=== PATIENT | male | born 1985 | race Caucasian/White ===

== ENCOUNTER 2017-05-10 16:47 | Emergency (ER) | payer OTHER ==
[~2017-05-10] VITALS: Ht 180.3 cm; Wt 117.9 kg
[~2017-05-10 16:47] MED LIST: CORTISPORIN 1%-10 M1 OT; KEFLEX500 MG PO; MOTRIN800 MG PO; NKHM; TRAMADOL HCL50 MG PO; TRIMOX500 MG PO
[2017-05-10] MEDS ORDERED: CEPHALEXIN500 M1 PO (17:28)
== END 2017-05-10 18:29 | disposition home or self-care (01) ==
LOC: ED 16:47
DX: L02.213 Cutaneous abscess of chest wall (principal); F17.200 Nicotine dependence, unspecified, uncomplicated

== ENCOUNTER 2019-07-17 09:54 | Emergency (ER) | payer OTHER ==
[~2019-07-17] VITALS: Ht 180.3 cm; Wt 142.9 kg
[~2019-07-17 09:54] MED LIST changes: +CEPHALEXIN500 M1 PO
== END 2019-07-17 15:00 | disposition home or self-care (01) ==
LOC: ED 09:54
DX: G43.909 Migraine, unspecified, not intractable, without status migrainosus (principal); F17.200 Nicotine dependence, unspecified, uncomplicated

== ENCOUNTER → 2022-11-12 | Outpatient (CLI) | payer OTHER | END | disposition home or self-care (01) | LOC: RAD 10:37 | PROVIDERS: ATTEND Nurse Practitioner Family | DX: M25.561 Pain in right knee (principal); M54.41 Lumbago with sciatica, right side ==

== ENCOUNTER → 2023-01-29 | Outpatient (CLI) | payer OTHER | END | disposition home or self-care (01) | LOC: ORTHO 00:31 | PROVIDERS: ATTEND Orthopaedic Surgery | DX: M25.561 Pain in right knee (principal) ==

== ENCOUNTER 2024-10-04 13:02 | Emergency (ER) | payer OTHER ==
[~2024-10-04] VITALS: Ht 180.3 cm; Wt 147.4 kg
[~2024-10-04 13:02] MED LIST changes: +CIPROFLOXACIN500 M4 PO; +METRONIDAZOLE500 M1 PO
[2024-10-04 16:19] LABS: BASO # 0.1 10*3/uL (0.0-0.1); BASO % 0.9 % (0.0-1.0); EOS # 0.2 10*3/uL (0.0-0.4); EOS % 2.4 % (1.0-4.0); HEMATOCRIT 46.6 % (42.0-52.0); MEAN CELL VOLUME 89.3 fl (80.0-94.0); MEAN CORPUSCULAR HGB 28.9 pg (27.0-31.0); MEAN CORPUSCULAR HGB CONC 32.4 g/dl (33.0-37.0); MEAN PLATELET VOLUME 9.7 fl (9.6-12.3); MONO # 0.7 10*3/uL (0.1-1.0); MONO % 7.7 % (3.0-9.0); NEUT # 4.8 10*3/uL (2.3-7.9); NEUT % 52.6 % (47.0-73.0); PLATELET COUNT AUTOMATED 316 10*3/uL (130-400); RED BLOOD COUNT 5.22 10*6/uL (4.50-5.90); RED CELL DISTRI WIDTH 11.4 % (0-14.5); WHITE BLOOD COUNT 9.2 10*3/uL (4.8-10.8)
[2024-10-04 16:50] LABS: BUN 9 mg/dl (9-23); CHLORIDE 102 mmol/L (98-107); POTASSIUM 4.3 mmol/L (3.4-5.1)
[2024-10-04] MEDS ORDERED: ANUSOL HC30 GM PO (16:56)
== END 2024-10-04 17:02 | disposition home or self-care (01) ==
LOC: ED 13:02
PROVIDERS: Nurse Practitioner Family
DX: K64.9 Unspecified hemorrhoids (principal); G43.909 Migraine, unspecified, not intractable, without status migrainosus; F17.290 Nicotine dependence, other tobacco product, uncomplicated

== ENCOUNTER 2024-12-11 10:06 | Emergency (ER) | payer OTHER ==
[~2024-12-11] VITALS: Ht 180.3 cm; Wt 142.9 kg
[~2024-12-11 10:06] MED LIST changes: +ANUSOL HC30 GM PO
[2024-12-11] MEDS ORDERED: TAMIFLU 75MG CA75 MG PO (13:24)
== END 2024-12-11 13:47 | disposition home or self-care (01) ==
LOC: ED 10:06
DX: R05.9 Cough, unspecified (principal); R50.9 Fever, unspecified; Z20.822 Contact with and (suspected) exposure to COVID-19; M79.10 Myalgia, unspecified site; J02.9 Acute pharyngitis, unspecified; G43.909 Migraine, unspecified, not intractable, without status migrainosus; F17.200 Nicotine dependence, unspecified, uncomplicated; Z87.442 Personal history of urinary calculi; Z98.890 Other specified postprocedural states